=== PATIENT | male | born 1960 | race Caucasian/White ===

== ENCOUNTER 2022-05-28 14:15 | Emergency (ER) | payer OTHER ==
[~2022-05-28] VITALS: Ht 172.7 cm; Wt 83.9 kg
[2022-05-28] MEDS ORDERED: COZAAR25 MG PO (14:49)
[2022-05-28] MEDS ORDERED: ATORVASTATIN CA10 MG PO (14:50)
== END 2022-05-28 19:05 | disposition home or self-care (01) ==
LOC: ER 14:15
DX: K59.00 Constipation, unspecified (principal)